=== PATIENT | male | born 1980 | race Caucasian/White ===

== ENCOUNTER 2024-04-20 06:17 | Emergency (ER) | payer OTHER ==
[2024-04-20] MEDS: Ondansetron 4 MG/2 ML SDV IVPUSH ONE ×2 (06:55→11:04)
[2024-04-20] MEDS: Sodium Chloride 0.9% 1,000 ML IV SCH (06:55)
[2024-04-20 07:15] LABS: BASOPHILS ABSOLUTE AUTO 0.1 K/mm3 (0.0-0.2); BASOPHILS PERCENT AUTO 0.6 % (0.0-1.0); EOSINOPHILS ABSOLUTE AUTO 0.1 K/mm3 (0.0-0.4); EOSINOPHILS PERCENT AUTO 0.4 % (0.0-6.0); HEMATOCRIT 47.3 % (42.0-52.0); HEMOGLOBIN 16.2 gm/dl (14.0-18.0); IMMATURE GRAN ABSOLUTE AUTO 0.06 K/mm3 (0.00-0.05); IMMATURE GRAN PERCENT AUTO 0.4 % (0.0-0.4); LYMPHOCYTES ABSOLUTE AUTO 1.9 K/mm3 (1.0-4.8); LYMPHOCYTES PERCENT AUTO 13.7 % (24.0-44.0); MEAN CORPUSCULAR HGB CONC 34.2 g/dl (32.0-36.0); MEAN CORPUSCULAR VOLUME 90.6 fl (83.0-99.0); MEAN PLATELET VOLUME 9.7 fl (9.4-12.4); MONOCYTES ABSOLUTE AUTO 0.7 K/mm3 (0.0-0.8); MONOCYTES PERCENT AUTO 5.1 % (0.0-8.0); NEUTROPHILS PERCENT AUTO 79.8 % (41.0-71.0); PLATELET COUNT,PLT 253 K/mm3 (150-400); RED BLOOD CELL COUNT 5.22 M/mm3 (4.52-5.90); WHITE BLOOD CELL COUNT,WBC 13.84 K/mm3 (3.9-11.3)
[2024-04-20 07:33] LABS: INR 0.95; PROTHROMBIN TIME 10.1 SECONDS (9.7-12.0)
[2024-04-20 07:34] LABS: PTT,PARTIAL THROMBOPLSTIN TIME < 20.0 SECONDS (21.7-31.4)
[2024-04-20 07:41] LABS: A/G RATIO 1.1 (1-2); ALBUMIN 4.2 g/dl (3.4-5.0); ANION GAP 13.4 (5-15); BILIRUBIN TOTAL 0.4 mg/dL (0.2-1.0); BUN/CREATININE RATIO 11.3 (14-18); CREATININE 1.6 mg/dL (0.7-1.3); EST CRCL DRUG DOSING (CG) 65.34 mL/min; POTASSIUM,K 4.4 mEq/L (3.5-5.1)
[2024-04-20] MEDS: Sodium Chloride 0.9% 10 ML Syringe FLUSH PRN ×2 (08:28→09:01)
[2024-04-20] MEDS: Iopamidol 755 Mg/ML 100 ML Bottle IVPUSH ONE (08:28)
[2024-04-20] MEDS: Sodium Chloride 0.9% 100 ML IV SCH (08:29)
[2024-04-20] MEDS: diphenhydrAMINE 50 MG/ML SDV IVPUSH ONE (08:55)
[2024-04-20] MEDS: Metoclopramide 10 MG/2 ML SDV IVPUSH ONE (08:55)
[2024-04-20] MEDS ORDERED: Meclizine 25 MG Tab ONE (10:53)
[2024-04-20] MEDS ORDERED: Aspirin 81 MG Tab.Chew ONE (10:58)
[2024-04-20] MEDS: Aspirin 81 MG Tab.Chew PO ONE (11:00)
[2024-04-20] MEDS: Meclizine 25 MG Tab PO ONE (11:00)
[2024-04-20] MEDS: HYDROmorphone 0.5 MG/0.5 ML Syringe IVPUSH ONE (11:05)
[2024-04-20] MEDS: Ketorolac 30 MG/ML SDV IVPUSH ONE (11:05)
== END 2024-04-20 18:14 ==
LOC: JD.ED 06:17
DX: R79.89 Other specified abnormal findings of blood chemistry (principal); R42 Dizziness and giddiness; R11.2 Nausea with vomiting, unspecified; Z88.0 Allergy status to penicillin
CPT/HCPCS: 36415; 70450; 70496; 70498; 80053; 84484; 85025; 85610; 85730; 93005; 93306; 96361; 96374; 96375; 96376; 99285; A9270; J1170; J1200; J1885; J2405; J2765; J3490; J7030; Q9967; 93010